=== PATIENT | male | born 1930 | race Caucasian/White ===

== ENCOUNTER 2018-11-11 18:27 | Inpatient (IN) | payer OTHER ==
[~2018-11-11] VITALS: Ht 182.9 cm; Wt 81.4 kg
--- NOTE | 2018-11-11 18:40 | NUR ---
TASK RN: Patient brought in by EMS for altered mental status, per family beginning this morning patient was more weak especially during physical therapy, was having difficulty following commands and was becoming increasingly more confused throughout the day. Patient arrives alert, oriented to person and place only. Per family patient is normally oriented x4 with intermittent forgetfulness or confusion. Patient reportedly is residing at [facility] for rehabilitation after having a right femur fracture with repair at [facility]. IV established by EMS prior to arrival, blood glucose 155mg/dl per EMS. and daughter at bedside, continuous blood pressure, SPO2 and cardiac monitoring in place, call [email or web address] within reach.
[2018-11-11] MEDS ORDERED: SODIUM CHLORIDE FLUSH 10ML SYR IVF ONE (19:30)
[2018-11-11 19:41] LABS: BASOPHILS # (AUTO) 0.05 x10^3/uL (0-0.1); BASOPHILS % (AUTO) 1 % (0-1); EOSINOPHILS # (AUTO) 0.13 x10^3/uL (0-0.4); EOSINOPHILS % (AUTO) 1 % (1-7); LYMPHOCYTES # (AUTO) 0.89 x10^3/uL (1-3.4); LYMPHOCYTES % (AUTO) 9 % (22-44); MD NO; MEAN CORPUSCULAR HGB CONC 34.4 g/dL (33.2-36.2); MEAN CORPUSCULAR VOLUME 98.8 fL (81-97); MEAN PLATELET VOLUME 6.9 fL (7.4-10.4); MONOCYTES # (AUTO) 0.72 x10^3/uL (0.2-0.8); MONOCYTES % (AUTO) 7 % (2-9); NEUTROPHILS # (AUTO) 8.39 x10^3/uL (1.8-6.8); NEUTROPHILS % (AUTO) 82 % (42-75); PLATELET COUNT 184 x10^3/uL (130-400); RED BLOOD COUNT 3.65 x10^6/uL (4.38-5.82); RED CELL DISTRIBUTION WIDTH 13.7 % (9.4-14.8)
[2018-11-11 19:49] LABS: ALANINE AMINOTRANSFERASE 32 U/L (12-78); ALBUMIN 3.4 g/dL (3.4-5.0); ANION GAP 7 mmol/L (5-15); CALCIUM 8.9 mg/dL (8.5-10.1); CHLORIDE 94 mmol/L (98-107); CREATININE 1.07 mg/dL (0.7-1.3)
[2018-11-11 19:54] LABS: ALKALINE PHOSPHATASE 114 U/L (45-117); TOTAL PROTEIN 6.8 g/dL (6.4-8.2); TROPONIN I < 0.015 ng/mL (0.000-0.045)
[2018-11-11] MEDS ORDERED: LEUP45SY3 SQ (20:56)
[2018-11-11] MEDS ORDERED: ERGO500017 PO (20:57)
[2018-11-11] MEDS ORDERED: LOSA1TAB2 PO (20:59)
[2018-11-11] MEDS ORDERED: LATANOPROST (21:01)
[2018-11-11] MEDS ORDERED: MIRA50TA PO (21:02)
[2018-11-11] MEDS ORDERED: nystatin cream (21:03)
[2018-11-11] MEDS ORDERED: SENN1TAB59 PO (21:04)
[2018-11-11] MEDS ORDERED: BRIN8DRO LEFTEYE (21:08)
[2018-11-11] MEDS ORDERED: RIVA10TA2 PO (21:09)
[2018-11-11] MEDS ORDERED: Aplisol (21:10)
[2018-11-11] MEDS ORDERED: ASPI-496 PO (21:11)
[2018-11-11] MEDS ORDERED: BIMATOPROST (21:11)
[2018-11-11] MEDS ORDERED: UBID100C41 PO (21:12)
[2018-11-11] MEDS ORDERED: MEMA5TAB PO (21:12)
[2018-11-11] MEDS ORDERED: SIMV10TA3 PO (21:13)
[2018-11-11] MEDS ORDERED: CETI10CA PO (21:14)
--- NOTE | 2018-11-11 21:16 | NUR ---
PT FAMILY AT BEDSIDE. FAMILY STATING HE SEEMS LIKE HE IS IN PAIN. ON ASSESSMENT PT STATES HE IS CURRENTLY NOT IN PAIN. FAMILY WORRIED THAT HE MIGHT HAVE AN INJURED BACK FROM [place]ICH HE WAS TREATED AT [facility] FOR A FRACTURED FEMUR. PT STATES HE IS ONLY IN PAIN IF HE IS MOVED. Addendum: 11/11/18 at 2118 by PAULINE MADE AWARE.
[2018-11-11] MEDS ORDERED: KETOROLAC 30 MG/1 ML IVPush ONE (22:00)
--- NOTE | 2018-11-11 22:07 | NUR ---
REPORT OF PT FROM TERESA WALLACE AND ASSUMING CARE OF PT AT THIS TIME.
[2018-11-11 22:11] LABS: MICROSCOPIC NOT IND
--- NOTE | 2018-11-11 22:13 | NUR ---
HOSPITALIST AT WITH FAMILY FOR HISTORY AND ASSESSMENT OF PT.
[2018-11-11 22:14] LABS: CULTURE INDICATED? NO
--- NOTE | 2018-11-11 22:21 | NUR ---
MOIZ RN: TERESA MOREL CM STATES THAT PT. IS TO STAY HERE UNLESS HIGHER LEVEL OF CARE IS REQUIRED. Addendum: 11/11/18 at 2221 by SNEHAL FROM [facility].
[2018-11-11] MEDS ORDERED: SODIUM CHLORIDE FLUSH 10ML SYR IVF PRN (22:30)
[2018-11-11] MEDS ORDERED: ACETAMINOPHEN 325 MG TABLET PO PRN (23:00)
[2018-11-11] MEDS ORDERED: KETOROLAC 30 MG/1 ML ONE (23:00)
[2018-11-11] MEDS ORDERED: ERGOCALCIFEROL 50,000 UNIT CAPSULE PO SCH (23:00)
[2018-11-11] MEDS ORDERED: ONDANSETRON ODT 4 MG PO PRN (23:00)
[2018-11-11] MEDS ORDERED: BISACODYL 10 MG SUPP PR PRN (23:00)
[2018-11-11] MEDS ORDERED: POLYETHYLENE GLYCOL 17 GM PACKET PO PRN (23:00)
[2018-11-11] MEDS: TEMPLATE NON-FORMULARY MED. (Brinzolamide/Brimonid Tart (Simbrinza 1%-0.2% Eye Drops) 1 DR LEFTEYE SCH (23:00)
--- NOTE | 2018-11-11 23:14 | NUR ---
PT TAKEN TO XRAY VIA [facility]. PT MEDICATED TO MAR FOR PAIN PRIOR.
[2018-11-11 23:49] LABS: FOLATE LEVEL > 20.0 ng/mL (3.1-17.5)
--- NOTE | 2018-11-12 00:48 | NUR ---
REPORT OF PT TO TERESA TOLLIVER. ALL QUESTIONS ANSWERED. PT SPOUSE UPDATED ON ROOM ASSIGNMENT. PT AND DENY ANY OTHER NEEDS IN ER.
[2018-11-12 01:53] VITALS: BP 152/79
[2018-11-12] MEDS: MEMANTINE 5MG TABLET PO SCH ×3 (02:30→20:17)
[2018-11-12] MEDS: HEPARIN 5,000 UNITS/ML, 1ML SQ SCH ×3 (02:30→15:59)
[2018-11-12] MEDS: SIMVASTATIN 10 MG TABLET PO SCH ×2 (02:32→20:17)
[2018-11-12 02:59] VITALS: BP 147/70
[2018-11-12 07:35] LABS: BASOPHILS # (AUTO) 0.02 x10^3/uL (0-0.1); BASOPHILS % (AUTO) 0 % (0-1); EOSINOPHILS # (AUTO) 0.24 x10^3/uL (0-0.4); EOSINOPHILS % (AUTO) 3 % (1-7); LYMPHOCYTES # (AUTO) 0.85 x10^3/uL (1-3.4); LYMPHOCYTES % (AUTO) 11 % (22-44); MD NO; MEAN CORPUSCULAR HEMOGLOBIN 33.5 pg (27.5-34.5); MEAN CORPUSCULAR VOLUME 98.4 fL (81-97); MEAN PLATELET VOLUME 7.2 fL (7.4-10.4); MONOCYTES # (AUTO) 0.58 x10^3/uL (0.2-0.8); MONOCYTES % (AUTO) 8 % (2-9); NEUTROPHILS % (AUTO) 78 % (42-75); PLATELET COUNT 185 x10^3/uL (130-400); RED BLOOD COUNT 3.56 x10^6/uL (4.38-5.82); RED CELL DISTRIBUTION WIDTH 13.8 % (9.4-14.8)
[2018-11-12 07:38] LABS: ANION GAP 8 mmol/L (5-15); CALCIUM 8.3 mg/dL (8.5-10.1); CHLORIDE 95 mmol/L (98-107)
[2018-11-12 07:42] LABS: ALANINE AMINOTRANSFERASE 28 U/L (12-78); ALKALINE PHOSPHATASE 83 U/L (45-117); BILIRUBIN,TOTAL 1.2 mg/dL (0.2-1.0); CREATININE 0.91 mg/dL (0.7-1.3); TOTAL PROTEIN 6.2 g/dL (6.4-8.2)
[2018-11-12 07:59] VITALS: BP 151/66
[2018-11-12 08:16] LABS: CHLORIDE,URINE RANDOM 87 mmol/L; POTASSIUM,URINE RANDOM 46 mmol/L; SODIUM,URINE RANDOM 69 mmol/L
[2018-11-12 08:45] LABS: OSMOLALITY,URINE 572 mOsm/kg (500-850)
[2018-11-12] MEDS ORDERED: SENNA/DOCUSATE TABLET PO SCH (09:00)
[2018-11-12] MEDS ORDERED: TEMPLATE NON-FORMULARY MED. (Ubidecarenone** (Co Q-10**) 200 MG) PO SCH (09:00)
[2018-11-12] MEDS ORDERED: ASPIRIN 81 MG TABLET EC PO SCH (09:00)
[2018-11-12] MEDS ORDERED: BIMA2.5D EACHEYE (09:50)
[2018-11-12] MEDS ORDERED: RIVA10TA2 PO (09:50)
[2018-11-12] MEDS ORDERED: BRIN8DRO EACHEYE (09:50)
[2018-11-12] MEDS ORDERED: LATA7.5D EACHEYE (09:50)
[2018-11-12] MEDS ORDERED: TAMS-11 PO (09:50)
[2018-11-12] MEDS: TEMPLATE NON-FORMULARY MED. (Mirabegron** (Myrbetriq**) 50 MG) HOMEMEDPO SCH (09:50)
[2018-11-12] MEDS: TEMPLATE NON-FORMULARY MED. (Brinzolamide/Brimonid Tart (Simbrinza 1%-0.2% Eye Drops) 1 DR LEFTEYE SCH ×2 (09:50→20:19)
[2018-11-12] MEDS ORDERED: MV-M1TAB35 PO (09:50)
[2018-11-12] MEDS: CETIRIZINE 10 MG TABLET PO SCH (09:53)
[2018-11-12 13:23] VITALS: BP 139/81
[2018-11-12 20:05] VITALS: BP 145/64
[2018-11-12] MEDS: TEMPLATE NON-FORMULARY MED. (Bimatoprost (Lumigan) 1 DROP) EACHEYE SCH (20:19)
[2018-11-12] MEDS: TEMPLATE NON-FORMULARY MED. (Latanoprost/Pf (Latanoprost 0.005% Eye Drop) 1 DROP) EACHEYE SCH (20:20)
[2018-11-12] MEDS: SENNA/DOCUSATE TABLET PO SCH (20:21)
[2018-11-12] MEDS ORDERED: TEMPLATE NON-FORMULARY MED. (Brinzolamide/Brimonid Tart (Simbrinza 1%-0.2% Eye Drops) 1 DR EACHEYE SCH (21:00)
[2018-11-13 03:45] VITALS: BP 131/77
[2018-11-13 07:26] VITALS: BP 131/65
[2018-11-13] MEDS: SENNA/DOCUSATE TABLET PO SCH ×2 (09:00→20:38)
[2018-11-13] MEDS: TEMPLATE NON-FORMULARY MED. (Mirabegron** (Myrbetriq**) 50 MG) HOMEMEDPO SCH (09:00)
[2018-11-13] MEDS ORDERED: RIVAROXABAN 10 MG TABLET PO SCH (09:00)
[2018-11-13] MEDS: TEMPLATE NON-FORMULARY MED. (Brinzolamide/Brimonid Tart (Simbrinza 1%-0.2% Eye Drops) 1 DR LEFTEYE SCH ×2 (09:00→20:39)
[2018-11-13] MEDS: [UNRECOGNIZED DRUG - OTHER] PO SCH (09:00)
[2018-11-13] MEDS: CETIRIZINE 10 MG TABLET PO SCH (09:00)
[2018-11-13 09:46] LABS: BASOPHILS # (AUTO) 0.03 x10^3/uL (0-0.1); BASOPHILS % (AUTO) 0 % (0-1); EOSINOPHILS # (AUTO) 0.18 x10^3/uL (0-0.4); EOSINOPHILS % (AUTO) 3 % (1-7); LYMPHOCYTES # (AUTO) 0.68 x10^3/uL (1-3.4); LYMPHOCYTES % (AUTO) 10 % (22-44); MD NO; MEAN CORPUSCULAR HGB CONC 33.7 g/dL (33.2-36.2); MEAN PLATELET VOLUME 7.3 fL (7.4-10.4); MONOCYTES # (AUTO) 0.42 x10^3/uL (0.2-0.8); MONOCYTES % (AUTO) 6 % (2-9); NEUTROPHILS # (AUTO) 5.76 x10^3/uL (1.8-6.8); NEUTROPHILS % (AUTO) 81 % (42-75); PLATELET COUNT 203 x10^3/uL (130-400); RED BLOOD COUNT 3.89 x10^6/uL (4.38-5.82); RED CELL DISTRIBUTION WIDTH 13.8 % (9.4-14.8)
[2018-11-13 09:52] LABS: ANION GAP 8 mmol/L (5-15); CALCIUM 8.7 mg/dL (8.5-10.1); CHLORIDE 94 mmol/L (98-107)
[2018-11-13] MEDS: TAMSULOSIN 0.4 MG CAP.ER.24H PO SCH (09:53)
[2018-11-13] MEDS: MEMANTINE 5MG TABLET PO SCH ×2 (09:53→20:38)
[2018-11-13 09:54] LABS: CREATININE 0.88 mg/dL (0.7-1.3)
[2018-11-13 13:05] VITALS: BP 105/61
[2018-11-13] MEDS: HEPARIN 5,000 UNITS/ML, 1ML SQ SCH (16:57)
[2018-11-13] MEDS ORDERED: LIDOCAINE 1%, 20ML ONE (17:51)
[2018-11-13] MEDS ORDERED: LIDOCAINE-MPF 1%, 5ML ONE ×2 (17:52→17:54)
[2018-11-13 19:53] VITALS: BP 110/61
[2018-11-13] MEDS: SIMVASTATIN 10 MG TABLET PO SCH (20:38)
[2018-11-13] MEDS: TEMPLATE NON-FORMULARY MED. (Bimatoprost (Lumigan) 1 DROP) EACHEYE SCH (20:38)
[2018-11-13] MEDS: TEMPLATE NON-FORMULARY MED. (Latanoprost/Pf (Latanoprost 0.005% Eye Drop) 1 DROP) EACHEYE SCH (20:39)
[2018-11-14] MEDS: HEPARIN 5,000 UNITS/ML, 1ML SQ SCH ×3 (00:42→16:30)
[2018-11-14 01:55] VITALS: BP 184/79
[2018-11-14] MEDS ORDERED: hydrALAzine 20 MG/ML, 1ML IV ONE (02:30)
[2018-11-14 04:29] VITALS: BP 145/75
[2018-11-14 07:22] VITALS: BP 149/66
[2018-11-14] MEDS: TEMPLATE NON-FORMULARY MED. (Brinzolamide/Brimonid Tart (Simbrinza 1%-0.2% Eye Drops) 1 DR LEFTEYE SCH ×2 (09:00→21:00)
[2018-11-14] MEDS: [UNRECOGNIZED DRUG - OTHER] PO SCH (09:00)
[2018-11-14] MEDS: SENNA/DOCUSATE TABLET PO SCH ×2 (09:59→21:00)
[2018-11-14] MEDS: TEMPLATE NON-FORMULARY MED. (Mirabegron** (Myrbetriq**) 50 MG) HOMEMEDPO SCH (09:59)
[2018-11-14] MEDS: TAMSULOSIN 0.4 MG CAP.ER.24H PO SCH (10:00)
[2018-11-14] MEDS: MEMANTINE 5MG TABLET PO SCH ×2 (10:00→22:01)
[2018-11-14] MEDS: CETIRIZINE 10 MG TABLET PO SCH (10:00)
[2018-11-14] MEDS ORDERED: LIDOCAINE-MPF 1%, 5ML ONE (13:28)
[2018-11-14 14:49] VITALS: BP 103/60
[2018-11-14 17:51] LABS: GLUCOSE, CSF 84 mg/dL (40-80); TOTAL PROTEIN,CSF 86 mg/dL (15-45)
[2018-11-14 18:40] VITALS: BP 129/68
[2018-11-14] MEDS: TEMPLATE NON-FORMULARY MED. (Bimatoprost (Lumigan) 1 DROP) EACHEYE SCH (21:00)
[2018-11-14] MEDS: TEMPLATE NON-FORMULARY MED. (Latanoprost/Pf (Latanoprost 0.005% Eye Drop) 1 DROP) EACHEYE SCH (21:59)
[2018-11-14] MEDS: SIMVASTATIN 10 MG TABLET PO SCH (22:01)
[2018-11-15] MEDS: HEPARIN 5,000 UNITS/ML, 1ML SQ SCH ×2 (00:02→08:15)
[2018-11-15 00:11] VITALS: BP 149/79
[2018-11-15] MEDS: [UNRECOGNIZED DRUG - OTHER] PO SCH (07:00)
[2018-11-15 07:27] VITALS: BP 146/84
[2018-11-15] MEDS: TEMPLATE NON-FORMULARY MED. (Mirabegron** (Myrbetriq**) 50 MG) HOMEMEDPO SCH (08:15)
[2018-11-15] MEDS: TAMSULOSIN 0.4 MG CAP.ER.24H PO SCH (08:16)
[2018-11-15] MEDS: MEMANTINE 5MG TABLET PO SCH ×2 (08:16→20:34)
[2018-11-15] MEDS: SENNA/DOCUSATE TABLET PO SCH ×2 (08:16→20:34)
[2018-11-15] MEDS: CETIRIZINE 10 MG TABLET PO SCH (08:16)
[2018-11-15] MEDS: TEMPLATE NON-FORMULARY MED. (Brinzolamide/Brimonid Tart (Simbrinza 1%-0.2% Eye Drops) 1 DR LEFTEYE SCH ×2 (08:16→20:36)
[2018-11-15] MEDS: LOSARTAN 50MG TABLET PO SCH (10:39)
[2018-11-15] MEDS: SODIUM CHLORIDE 1 GM TABLET PO SCH (10:39)
[2018-11-15] MEDS: RIVAROXABAN 10 MG TABLET PO SCH (10:39)
[2018-11-15 12:52] VITALS: BP 115/63
[2018-11-15 19:23] VITALS: BP 111/52
[2018-11-15] MEDS: SIMVASTATIN 10 MG TABLET PO SCH (20:34)
[2018-11-15] MEDS: TEMPLATE NON-FORMULARY MED. (Latanoprost/Pf (Latanoprost 0.005% Eye Drop) 1 DROP) EACHEYE SCH (20:35)
[2018-11-15] MEDS: TEMPLATE NON-FORMULARY MED. (Bimatoprost (Lumigan) 1 DROP) EACHEYE SCH (20:35)
[2018-11-16 02:48] VITALS: BP 118/45
[2018-11-16 08:19] VITALS: BP 138/68
[2018-11-16] MEDS: TEMPLATE NON-FORMULARY MED. (Brinzolamide/Brimonid Tart (Simbrinza 1%-0.2% Eye Drops) 1 DR LEFTEYE SCH ×2 (09:00→21:00)
[2018-11-16] MEDS: [UNRECOGNIZED DRUG - OTHER] PO SCH (09:00)
[2018-11-16] MEDS: TEMPLATE NON-FORMULARY MED. (Mirabegron** (Myrbetriq**) 50 MG) HOMEMEDPO SCH (09:00)
[2018-11-16] MEDS: SENNA/DOCUSATE TABLET PO SCH ×2 (09:00→21:23)
[2018-11-16] MEDS: TAMSULOSIN 0.4 MG CAP.ER.24H PO SCH (09:32)
[2018-11-16] MEDS: MEMANTINE 5MG TABLET PO SCH ×2 (09:32→21:23)
[2018-11-16] MEDS: SODIUM CHLORIDE 1 GM TABLET PO SCH (09:32)
[2018-11-16] MEDS: CETIRIZINE 10 MG TABLET PO SCH (09:33)
[2018-11-16] MEDS: LOSARTAN 50MG TABLET PO SCH (09:33)
[2018-11-16] MEDS: RIVAROXABAN 10 MG TABLET PO SCH (09:33)
[2018-11-16 13:38] VITALS: BP 116/64
[2018-11-16 19:26] VITALS: BP 103/57
[2018-11-16] MEDS: TEMPLATE NON-FORMULARY MED. (Latanoprost/Pf (Latanoprost 0.005% Eye Drop) 1 DROP) EACHEYE SCH (21:00)
[2018-11-16] MEDS: TEMPLATE NON-FORMULARY MED. (Bimatoprost (Lumigan) 1 DROP) EACHEYE SCH (21:00)
[2018-11-16] MEDS: SIMVASTATIN 10 MG TABLET PO SCH (21:24)
[2018-11-17 02:35] VITALS: BP 137/73
[2018-11-17 07:45] VITALS: BP 131/70
[2018-11-17] MEDS: MEMANTINE 5MG TABLET PO SCH ×2 (08:08→20:16)
[2018-11-17] MEDS: LOSARTAN 50MG TABLET PO SCH (08:08)
[2018-11-17] MEDS: TAMSULOSIN 0.4 MG CAP.ER.24H PO SCH (08:08)
[2018-11-17] MEDS: CETIRIZINE 10 MG TABLET PO SCH (08:08)
[2018-11-17] MEDS: SENNA/DOCUSATE TABLET PO SCH ×2 (08:08→20:17)
[2018-11-17] MEDS: TEMPLATE NON-FORMULARY MED. (Mirabegron** (Myrbetriq**) 50 MG) HOMEMEDPO SCH (08:09)
[2018-11-17] MEDS: TEMPLATE NON-FORMULARY MED. (Brinzolamide/Brimonid Tart (Simbrinza 1%-0.2% Eye Drops) 1 DR LEFTEYE SCH ×2 (08:09→20:16)
[2018-11-17] MEDS: RIVAROXABAN 10 MG TABLET PO SCH (08:09)
[2018-11-17] MEDS: [UNRECOGNIZED DRUG - OTHER] PO SCH (08:12)
[2018-11-17 17:00] VITALS: BP 145/76
[2018-11-17] MEDS: SIMVASTATIN 10 MG TABLET PO SCH (20:15)
[2018-11-17] MEDS: TEMPLATE NON-FORMULARY MED. (Bimatoprost (Lumigan) 1 DROP) EACHEYE SCH (20:16)
[2018-11-17] MEDS: TEMPLATE NON-FORMULARY MED. (Latanoprost/Pf (Latanoprost 0.005% Eye Drop) 1 DROP) EACHEYE SCH (20:17)
[2018-11-17 20:31] VITALS: BP 122/73
[2018-11-18 01:21] VITALS: BP 145/76
[2018-11-18] MEDS: CETIRIZINE 10 MG TABLET PO SCH (08:13)
[2018-11-18] MEDS: TAMSULOSIN 0.4 MG CAP.ER.24H PO SCH (08:13)
[2018-11-18] MEDS: MEMANTINE 5MG TABLET PO SCH (08:13)
[2018-11-18] MEDS: LOSARTAN 50MG TABLET PO SCH (08:13)
[2018-11-18] MEDS: SENNA/DOCUSATE TABLET PO SCH (08:14)
[2018-11-18] MEDS: RIVAROXABAN 10 MG TABLET PO SCH (08:14)
[2018-11-18] MEDS: TEMPLATE NON-FORMULARY MED. (Mirabegron** (Myrbetriq**) 50 MG) HOMEMEDPO SCH (08:18)
[2018-11-18] MEDS: TEMPLATE NON-FORMULARY MED. (Brinzolamide/Brimonid Tart (Simbrinza 1%-0.2% Eye Drops) 1 DR LEFTEYE SCH (08:18)
[2018-11-18] MEDS: [UNRECOGNIZED DRUG - OTHER] PO SCH (08:18)
[2018-11-18 08:36] VITALS: BP 142/73
[2018-11-18] MEDS ORDERED: SODIUM CHLORIDE 1 GM TABLET PO SCH (11:00)
[2018-11-18 14:02] VITALS: BP 102/58
[2018-11-18] MEDS ORDERED: LOSA50TA2 PO (16:18)
[2018-11-18] MEDS ORDERED: SODI1TAB PO (16:18)
== END 2018-11-18 17:43 | DRG 71 ==
LOC: ED 19:35 → EDIP 22:02 → 4EST 11-12 01:37
PROVIDERS: ADMIT Internal Medicine; ATTEND Internal Medicine
PROC: 009U3ZX Drainage of Spinal Canal, Percutaneous Approach, Diagnostic (ICD-10-PCS; principal; 2018-11-14)
PROC: B01B1ZZ Fluoroscopy of Spinal Cord using Low Osmolar Contrast (ICD-10-PCS; 2018-11-14)
DX: G93.40 Encephalopathy, unspecified (principal); E87.1 Hypo-osmolality and hyponatremia; D53.9 Nutritional anemia, unspecified; E78.5 Hyperlipidemia, unspecified; F03.90 Unspecified dementia, unspecified severity, without behavioral disturbance, psychotic disturbance, mood disturbance, and anxiety; H40.9 Unspecified glaucoma; I10 Essential (primary) hypertension; N40.0 Benign prostatic hyperplasia without lower urinary tract symptoms; R32 Unspecified urinary incontinence; Z79.899 Other long term (current) drug therapy; Z85.46 Personal history of malignant neoplasm of prostate; Z86.73 Personal history of transient ischemic attack (TIA), and cerebral infarction without residual deficits; Z87.891 Personal history of nicotine dependence; Z95.0 Presence of cardiac pacemaker; Z88.0 Allergy status to penicillin
CPT/HCPCS: 36415; 70450; 71045; 72110; 77003; 80048; 80053; 81003; 82140; 82436; 82607; 82746; 82945; 83605; 83735; 83880; 83930; 83935; 84100; 84133; 84157; 84295; 84300; 84484; 85025; 86592; 87070; 87102; 87205; 87252; 88108; 89051; 93005; 96374; 99285; G0378; J1644; J1885; J0360